=== PATIENT | female | born 1995 | race Caucasian/White ===

== ENCOUNTER 2021-03-31 04:34 | Emergency (ER) | payer BC ==
[~2021-03-31] VITALS: Ht 165.1 cm; Wt 85.2 kg
[2021-03-31 04:35] VITALS: BP 144/98
[2021-03-31] MEDS ORDERED: KETO10TAB PO (05:10)
[2021-03-31] MEDS ORDERED: CETI-24 PO (05:10)
[2021-03-31] MEDS ORDERED: CETIRIZINE (ZyrTEC) 10 MG TAB PO ONE (05:10)
[2021-03-31] MEDS ORDERED: KETOROLAC TROMETHAMINE 10 MG TAB PO ONE (05:10)
== END 2021-03-31 05:25 | disposition home or self-care (01) ==
LOC: M ED 04:34
DX: H92.01 Otalgia, right ear (principal); F17.290 Nicotine dependence, other tobacco product, uncomplicated

== ENCOUNTER 2021-10-22 17:58 | Emergency (ER) | payer BC ==
[~2021-10-22] VITALS: Ht 165.1 cm; Wt 87.8 kg
[~2021-10-22 17:58] MED LIST: CETI-24 PO; KETO10TAB PO
[2021-10-22 20:52] LABS: BASO # 0.1 10^3/uL (0.0-0.2); BASO % 0.5 % (0.0-1.0); EOS # 0.1 10^3/uL (0.0-0.5); EOS % 1.1 % (0.0-3.0); HEMATOCRIT 32.1 % (36.0-47.0); HEMOGLOBIN 9.5 g/dl (12.0-15.5); LYMPH # 3.4 10^3/uL (1.5-5.0); LYMPH % 27.1 % (24.0-44.0); MEAN CORPUSCULAR HGB CONC 29.6 g/dl (32.0-36.5); MEAN CORPUSCULAR VOLUME 67.6 fl (80.0-96.0); MONO # 0.7 10^3/uL (0.0-0.8); MONO % 5.1 % (2.0-8.0); NEUTROPHILS # 8.4 10^3/uL (1.5-8.5); NEUTROPHILS % 65.8 % (36.0-66.0); PLATELET COUNT, AUTOMATED 418 10^3/uL (150-450); RED BLOOD COUNT 4.75 10^6/uL (4.00-5.40); WHITE BLOOD COUNT 12.7 10^3/uL (4.0-10.0)
[2021-10-22 21:28] LABS: BLOOD UREA NITROGEN 10 MG/DL (7-18); CALCIUM LEVEL 9.3 MG/DL (8.5-10.1); CARBON DIOXIDE LEVEL 24 MEQ/L (21-32); CHLORIDE LEVEL 109 MEQ/L (98-107); CREATININE FOR GFR 0.55 MG/DL (0.55-1.30); GLOMERULAR FILTRATION RATE > 60.0 (>60); GLUCOSE, FASTING 87 MG/DL (70-100); HCG, SERUM QUANTITATIVE 13785 MIU/ML; POTASSIUM SERUM 3.9 MEQ/L (3.5-5.1); SODIUM LEVEL 139 MEQ/L (136-145)
[2021-10-22 23:24] VITALS: BP 123/68
== END 2021-10-23 00:25 | disposition home or self-care (01) ==
LOC: M ED 17:58
DX: O26.851 Spotting complicating pregnancy, first trimester (principal); O35.1XX1 Maternal care for (suspected) chromosomal abnormality in fetus, fetus 1; Q51.810 Arcuate uterus; Z3A.01 Less than 8 weeks gestation of pregnancy

== ENCOUNTER → 2021-10-24 | Outpatient (CLI) | payer BC | LOC: M LAB 11:18 | PROVIDERS: ATTEND Obstetrics & Gynecology | DX: O20.8 Other hemorrhage in early pregnancy (principal); Z3A.00 Weeks of gestation of pregnancy not specified ==

== ENCOUNTER → 2022-01-26 | Outpatient (CLI) | payer BC ==
[2022-01-26 13:16] LABS: HEMOGLOBIN 9.2 g/dl (12.0-15.5); MEAN CORPUSCULAR HGB CONC 30.7 g/dl (32.0-36.5); MEAN CORPUSCULAR VOLUME 68.3 fl (80.0-96.0); PLATELET COUNT, AUTOMATED 300 10^3/uL (150-450); RED BLOOD COUNT 4.39 10^6/uL (4.00-5.40); WHITE BLOOD COUNT 12.3 10^3/uL (4.0-10.0)
[2022-01-26 14:29] LABS: GC DNA AMPLIFICATION NEGATIVE (NEGATIVE)
[2022-01-26 14:43] LABS: HEPATITIS C VIRUS ABY INDEX 0.1 INDEX (<0.8); HIV 1&2 SCREEN CENTAUR NEGATIVE (NEGATIVE)
== END ==
LOC: M PLALAB 09:39
PROVIDERS: ATTEND Obstetrics & Gynecology
DX: Z36.89 Encounter for other specified antenatal screening (principal); Z3A.09 9 weeks gestation of pregnancy

== ENCOUNTER → 2022-02-02 | Outpatient (CLI) | payer BC | LOC: M WHC 12:46 | PROVIDERS: ATTEND Obstetrics & Gynecology | DX: Z36.89 Encounter for other specified antenatal screening (principal); Z3A.15 15 weeks gestation of pregnancy ==

== ENCOUNTER → 2022-03-23 | Outpatient (CLI) | payer BC ==
[2022-03-23 13:41] LABS: HEMOGLOBIN 8.3 g/dl (12.0-15.5); MEAN CORPUSCULAR HEMOGLOBIN 20.7 pg (27.0-33.0); MEAN CORPUSCULAR HGB CONC 29.6 g/dl (32.0-36.5); MEAN CORPUSCULAR VOLUME 69.8 fl (80.0-96.0); PLATELET COUNT, AUTOMATED 258 10^3/uL (150-450); RED BLOOD COUNT 4.01 10^6/uL (4.00-5.40); WHITE BLOOD COUNT 11.7 10^3/uL (4.0-10.0)
== END ==
LOC: M PLALAB 10:55
PROVIDERS: ATTEND Obstetrics & Gynecology
DX: O99.012 Anemia complicating pregnancy, second trimester (principal)

== ENCOUNTER → 2022-03-23 | Outpatient (CLI) | payer BC ==
[2022-03-23 13:42] LABS: BASO % 0.3 % (0.0-1.0); EOS # 0.1 10^3/uL (0.0-0.5); EOS % 0.6 % (0.0-3.0); HEMATOCRIT 28.5 % (36.0-47.0); HEMOGLOBIN 8.3 g/dl (12.0-15.5); LYMPH # 1.6 10^3/uL (1.5-5.0); LYMPH % 14.2 % (24.0-44.0); MEAN CORPUSCULAR HEMOGLOBIN 20.2 pg (27.0-33.0); MEAN CORPUSCULAR HGB CONC 29.1 g/dl (32.0-36.5); MEAN CORPUSCULAR VOLUME 69.3 fl (80.0-96.0); MONO # 0.6 10^3/uL (0.0-0.8); MONO % 5.5 % (2.0-8.0); NEUTROPHILS # 8.9 10^3/uL (1.5-8.5); NEUTROPHILS % 78.6 % (36.0-66.0); PLATELET COUNT, AUTOMATED 274 10^3/uL (150-450); RED BLOOD COUNT 4.11 10^6/uL (4.00-5.40); WHITE BLOOD COUNT 11.3 10^3/uL (4.0-10.0)
[2022-03-23 15:39] LABS: FERRITIN 3 NG/ML (8-252); IRON (FE) 14 UG/DL (50-170); PERCENT SATURATION 2.7 % (13.2-45.0); TOTAL IRON BINDING CAPACITY 517 UG/DL (250-450)
[2022-03-23 15:49] LABS: GC DNA AMPLIFICATION NEGATIVE (NEGATIVE)
[2022-03-23 16:47] LABS: HIV 1&2 SCREEN CENTAUR NEGATIVE (NEGATIVE)
[2022-03-25 17:09] LABS: TRANSFERRIN 409 mg/dL (192-364)
== END ==
LOC: M PLALAB 10:53
PROVIDERS: ATTEND Obstetrics & Gynecology
DX: D64.9 Anemia, unspecified (principal)

== ENCOUNTER 2022-03-30 10:34 | Outpatient (CLI) | payer BC ==
[~2022-03-30] VITALS: Ht 165.1 cm; Wt 81.0 kg
[2022-03-30 10:55] VITALS: BP 120/58
[2022-03-30] MEDS ORDERED: PRENTAB9 PO (11:03)
[2022-03-30] MEDS ORDERED: TYLE650T38 PO (11:03)
[2022-03-30] MEDS ORDERED: HOME MED LIST COMPLETE! XX SCH (11:05)
== END 2022-03-30 11:20 | disposition home or self-care (01) ==
LOC: M LDO 10:34
PROVIDERS: ATTEND Specialist
DX: O36.8120 Decreased fetal movements, second trimester, not applicable or unspecified (principal); Z3A.28 28 weeks gestation of pregnancy
CPT/HCPCS: 59025; G0463

== ENCOUNTER 2022-04-19 09:07 | Outpatient (CLI) | payer BC ==
[2022-04-19] VITALS (7 sets, daily range): BP systolic 110–136; BP diastolic 64–86
[~2022-04-19] VITALS: Ht 165.1 cm; Wt 81.4 kg
[~2022-04-19 09:07] MED LIST changes: +PRENTAB9 PO; +TYLE650T38 PO
[2022-04-19] MEDS ORDERED: IRON SUCROSE 500 MG in NS 250 ML OVER 4 HRS IV ONE (09:30)
== END 2022-04-19 14:15 | disposition home or self-care (01) ==
LOC: M INFU 09:07
PROVIDERS: ATTEND Advanced Practice Midwife
DX: D64.9 Anemia, unspecified (principal)
CPT/HCPCS: 96365; 96366; J1756

== ENCOUNTER → 2022-05-19 | Outpatient (CLI) | payer BC ==
[2022-05-19 16:22] LABS: HEMATOCRIT 33.6 % (36.0-47.0); HEMOGLOBIN 10.1 g/dl (12.0-15.5); MEAN CORPUSCULAR HEMOGLOBIN 22.2 pg (27.0-33.0); MEAN CORPUSCULAR HGB CONC 30.1 g/dl (32.0-36.5); MEAN CORPUSCULAR VOLUME 73.8 fl (80.0-96.0); PLATELET COUNT, AUTOMATED 280 10^3/uL (150-450); RED BLOOD COUNT 4.55 10^6/uL (4.00-5.40); WHITE BLOOD COUNT 11.4 10^3/uL (4.0-10.0)
== END ==
LOC: M PLALAB 12:42
PROVIDERS: ATTEND Advanced Practice Midwife
DX: O99.013 Anemia complicating pregnancy, third trimester (principal)

== ENCOUNTER → 2022-05-19 | Outpatient (REF) | payer BC | LOC: M PLALAB 12:37 | PROVIDERS: ATTEND Advanced Practice Midwife | DX: O99.013 Anemia complicating pregnancy, third trimester (principal) ==

== ENCOUNTER 2022-06-23 08:56 | Inpatient (IN) | payer BC ==
[~2022-06-23] VITALS: Ht 165.1 cm; Wt 85.5 kg
[2022-06-23] VITALS (39 sets, daily range): BP systolic 102–171; BP diastolic 70–126
[2022-06-23] MEDS ORDERED: PSEU120T3 PO (09:41)
[2022-06-23] MEDS ORDERED: HOME MED LIST COMPLETE! XX SCH (10:05)
[2022-06-23] MEDS ORDERED: OXYTOCIN INJ 10UNITS/ML 1ML VIAL IM PRN (10:20)
[2022-06-23] MEDS ORDERED: CARBOPROST TROMETHAMINE 250 MCG/ML AMP IM PRN (10:20)
[2022-06-23] MEDS ORDERED: LIDOCAINE 1% MDV 20ML VIAL INFIL PRN (10:20)
[2022-06-23] MEDS ORDERED: TRANEXAMIC ACID INJection 1,000 MG in NS 100 ML IV PRN (10:20)
[2022-06-23] MEDS ORDERED: OXYTOCIN DRIP 30 UNITS in IV 1 EA IV PRN ×4 (10:20)
[2022-06-23 10:53] LABS: HEMATOCRIT 31.4 % (36.0-47.0); HEMOGLOBIN 9.8 g/dl (12.0-15.5); MEAN CORPUSCULAR HGB CONC 31.2 g/dl (32.0-36.5); MEAN CORPUSCULAR VOLUME 73.5 fl (80.0-96.0); PLATELET COUNT, AUTOMATED 270 10^3/uL (150-450); RED BLOOD COUNT 4.27 10^6/uL (4.00-5.40); WHITE BLOOD COUNT 12.1 10^3/uL (4.0-10.0)
[2022-06-23] MEDS ORDERED: NIFEdipine 10 MG CAP PO ONE (11:25)
[2022-06-23 11:33] LABS: URIC ACID 3.8 MG/DL (3.1-7.8)
[2022-06-23] MEDS: miSOPROStol 50MCG 1/2 TABLET PO SCH ×3 (11:33→20:00)
[2022-06-23 11:35] LABS: LDH LACTATE DEHYDROGENASE 151 U/L (120-246)
[2022-06-23 11:37] LABS: ALT/SGPT 10 U/L (7.0-40); AST/SGOT 16 U/L (<34); BILIRUBIN,TOTAL 0.2 MG/DL (0.3-1.2); CREATININE FOR GFR 0.48 MG/DL (0.55-1.30); GLOMERULAR FILTRATION RATE > 60.0 (>60)
[2022-06-23 12:08] LABS: TOTAL PROTEIN,RANDOM URINE 39.3 MG/DL (0.0-14.0)
[2022-06-23 12:13] LABS: CREATININE,RANDOM URINE 209.5 MG/DL
[2022-06-23] MEDS ORDERED: LACTATED RINGER'S 1000 ML IV ONE (13:30)
[2022-06-23] MEDS: ACETAMINOPHEN 500 MG TAB PO PRN (13:54)
[2022-06-23] MEDS: LR 1,000 ML IV SCH ×2 (13:55→18:14)
[2022-06-23] MEDS ORDERED: diphenhydrAMINE 25MG CAP PO ONE (18:50)
[2022-06-24] VITALS (33 sets, daily range): BP systolic 105–167; BP diastolic 67–100
[2022-06-24] MEDS: miSOPROStol 50MCG 1/2 TABLET PO SCH ×2 (04:00)
[2022-06-24] MEDS: LR 1,000 ML IV SCH ×6 (05:30→21:30)
[2022-06-24] MEDS ORDERED: LACTATED RINGER'S 1000 ML IV STA (08:12)
[2022-06-24] MEDS ORDERED: ONDANSETRON 4MG 2ML VIAL IV PRN ×3 (09:35→18:30)
[2022-06-24] MEDS ORDERED: diphenhydrAMINE 50MG/ML VIAL IV PRN ×2 (09:35→18:30)
[2022-06-24] MEDS ORDERED: EPIDURAL/PCA KEYS XX PRN (09:35)
[2022-06-24] MEDS ORDERED: LR 500 ML IV PRN (09:35)
[2022-06-24] MEDS ORDERED: NALOXONE INJ 0.4MG/1ML VIAL IV PRN ×3 (09:35→18:30)
[2022-06-24] MEDS ORDERED: FENTANYL/ROPIVACAINE/NACL BAG 100 ML EPIDURAL SCH (09:35)
[2022-06-24] MEDS ORDERED: ePHEDrine SULFATE 25 MG/5 ML(5MG/ML) SYRINGE IVP PRN (09:35)
[2022-06-24] MEDS ORDERED: FENTANYL 2MCG/ML ROPIVACAINE 0.2% IN 0.9% NACL 100ML IVBAG As Ordered ONE (09:40)
[2022-06-24] MEDS ORDERED: KETOROLAC 60MG 2ML VIAL As Ordered ONE (14:22)
[2022-06-24] MEDS ORDERED: MORPHINE PRES-FREE INJ 10 MG/10 ML VIAL As Ordered ONE (14:22)
[2022-06-24] MEDS ORDERED: OXYTOCIN INJ 10UNITS/ML 1ML VIAL As Ordered ONE ×2 (14:22→15:52)
[2022-06-24] MEDS ORDERED: AZITHROMYCIN INJ 500 MG, VIAL MATE ADAPTER 1 EACH in NS 250 ML IV ONE (14:30)
[2022-06-24] MEDS ORDERED: ceFAZolin SOD 2 GM in IV 1 EA IV ONE (14:30)
[2022-06-24] MEDS ORDERED: BICITRA 30ML SOLN UDC PO ONE (14:30)
[2022-06-24] MEDS ORDERED: METOCLOPRAMIDE INJ 10MG/2ML VIAL IV PRN ×2 (14:35→18:30)
[2022-06-24] MEDS ORDERED: ONDANSETRON 4MG 2ML VIAL As Ordered ONE (15:15)
[2022-06-24 15:49] LABS: CORD GAS ABE V -7.6; CORD GAS HCO3 V 20.7 MEQ/L; CORD GAS O2 SAT V 56.7 %; CORD GAS PCO2 V 52.2 mmHg; CORD GAS PH V 7.217 UNITS; CORD GAS PO2 V 25.9 mmHg; CORD GAS SBC V 17.5 MEQ/L; CORD GAS TCO2 V 22.3 MEQ/L
[2022-06-24 15:50] LABS: CORD GAS ABE A -8.7; CORD GAS HCO3 A 21.3 MEQ/L; CORD GAS PCO2 A 62.2 mmHg; CORD GAS PH A 7.152 UNITS; CORD GAS PO2 A 19.4 mmHg; CORD GAS SBC A 16.1 MEQ/L; CORD GAS TCO2 A 23.2 MEQ/L
[2022-06-24] MEDS ORDERED: MOM 30ML SUSPENSION UDC PO PRN (16:10)
[2022-06-24] MEDS ORDERED: OXYTOCIN DRIP 30 UNITS in IV 1 EA IV SCH (16:10)
[2022-06-24] MEDS ORDERED: SIMETHICONE 80MG CHEW TAB PO PRN (16:10)
[2022-06-24] MEDS ORDERED: ANUSOL HC CREAM 30GM TOP PRN (16:10)
[2022-06-24] MEDS ORDERED: PERCOCET 5MG/325MG TAB PO PRN ×2 (16:10)
[2022-06-24] MEDS ORDERED: ACETAMINOPHEN 500 MG TAB PO PRN (16:10)
[2022-06-24] MEDS ORDERED: RHOGAM 300 MCG (1500 IU) INJ (J2790) IM SCH (16:10)
[2022-06-24] MEDS ORDERED: MORPHINE 4 MG/ML 1ML VIAL IV PRN (16:10)
[2022-06-24] MEDS ORDERED: COLA100C5 PO (16:24)
[2022-06-24] MEDS ORDERED: IBUP80TA PO (16:24)
[2022-06-24] MEDS ORDERED: PERCOCET PO (16:25)
[2022-06-24] MEDS ORDERED: OXYTOCIN 30 UNITS IN 0.9% NaCl 500ML IV BAG (J2590) As Ordered ONE (16:26)
[2022-06-24] MEDS ORDERED: METOCLOPRAMIDE INJ 10MG/2ML VIAL As Ordered ONE (16:49)
[2022-06-24] MEDS ORDERED: **NOTE PATIENT COMMENT** MISC XX SCH (18:30)
[2022-06-24] MEDS ORDERED: fentaNYL 100 MCG/2 ML INJECTION IV PRN (18:30)
[2022-06-24] MEDS ORDERED: oxyCODONE 5MG TAB PO PRN (18:30)
[2022-06-24] MEDS: SLF 3 ML SYR IV SCH ×2 (20:31→20:32)
[2022-06-24] MEDS: DOCUSATE SODIUM 100MG CAPSULE PO SCH (20:33)
[2022-06-24] MEDS: KETOROLAC 30 MG/ML 1ML VIAL IV SCH (20:33)
[2022-06-25] MEDS: LR 1,000 ML IV SCH ×2 (00:10→03:11)
[2022-06-25 02:00] VITALS: BP 121/61
[2022-06-25] MEDS: SLF 3 ML SYR IV SCH ×4 (03:10→11:25)
[2022-06-25] MEDS: KETOROLAC 30 MG/ML 1ML VIAL IV SCH ×2 (03:12→08:05)
[2022-06-25 07:11] LABS: HEMATOCRIT 26.8 % (36.0-47.0); HEMOGLOBIN 8.3 g/dl (12.0-15.5); MEAN CORPUSCULAR HEMOGLOBIN 22.9 pg (27.0-33.0); PLATELET COUNT, AUTOMATED 225 10^3/uL (150-450); RED BLOOD COUNT 3.62 10^6/uL (4.00-5.40); WHITE BLOOD COUNT 15.4 10^3/uL (4.0-10.0)
[2022-06-25] MEDS: PRENATAL VITAMINS CHEWABLE TABLET PO SCH (08:04)
[2022-06-25] MEDS: DOCUSATE SODIUM 100MG CAPSULE PO SCH ×2 (08:04→20:37)
[2022-06-25 10:00] VITALS: BP 128/77
[2022-06-25] MEDS ORDERED: LR 500 ML IV ONE (12:00)
[2022-06-25 14:00] VITALS: BP 133/74
[2022-06-25] MEDS: IBUPROFEN 800 MG TAB PO SCH (16:08)
[2022-06-25 18:00] VITALS: BP 120/76
[2022-06-25] MEDS: ACETAMINOPHEN 500 MG TAB PO PRN (20:38)
[2022-06-25 22:00] VITALS: BP 135/70
[2022-06-26] MEDS: IBUPROFEN 800 MG TAB PO SCH ×2 (01:20→08:22)
[2022-06-26 02:00] VITALS: BP 127/78
[2022-06-26 05:45] VITALS: BP 123/80
[2022-06-26] MEDS: PRENATAL VITAMINS CHEWABLE TABLET PO SCH (08:21)
[2022-06-26] MEDS: DOCUSATE SODIUM 100MG CAPSULE PO SCH (08:21)
[2022-06-26] MEDS ORDERED: MEASLES,MUMPS,RUBELLA VACCINE INJ (MMR-II) (90707) SC.IMMUN ONE (09:00)
[2022-06-26] MEDS ORDERED: NORE0.353 PO (11:54)
[2022-06-26] MEDS: ACETAMINOPHEN 500 MG TAB PO PRN (13:29)
== END 2022-06-26 14:28 | disposition home or self-care (01) | DRG 540 ==
LOC: M LDI 08:56 → M OBS 06-24 19:40
PROVIDERS: ADMIT Advanced Practice Midwife; ATTEND Obstetrics & Gynecology
PROC: 3E0P7GC Introduction of Other Therapeutic Substance into Female Reproductive, Via Natural or Artificial Opening (ICD-10-PCS; 2022-06-23)
PROC: 10D00Z1 Extraction of Products of Conception, Low, Open Approach (ICD-10-PCS; principal; 2022-06-24 15:15)
DX: O13.4 Gestational [pregnancy-induced] hypertension without significant proteinuria, complicating childbirth (principal); O48.0 Post-term pregnancy; Z3A.40 40 weeks gestation of pregnancy; O62.0 Primary inadequate contractions; O76 Abnormality in fetal heart rate and rhythm complicating labor and delivery; Z37.0 Single live birth

== ENCOUNTER → 2023-03-02 | Outpatient (REF) | payer OTHER ==
[~2023-03-02] MED LIST changes: +COLA100C5 PO; +IBUP80TA PO; +NORE0.353 PO; +PERCOCET PO; +PSEU120T3 PO
[2023-03-02 19:15] LABS: GC DNA AMPLIFICATION NEGATIVE (NEGATIVE)
== END ==
LOC: M SFHCWAGY 16:50
PROVIDERS: ATTEND Obstetrics & Gynecology
DX: Z12.4 Encounter for screening for malignant neoplasm of cervix (principal); Z01.419 Encounter for gynecological examination (general) (routine) without abnormal findings; Z11.3 Encounter for screening for infections with a predominantly sexual mode of transmission; Z77.9 Other contact with and (suspected) exposures hazardous to health